=== PATIENT | female | born 2000 | race Hispanic/Latino ===

== ENCOUNTER 2023-10-21 19:33 | Emergency (ER) | payer MEDICAID, OTHER ==
[~2023-10-21] VITALS: Ht 157.5 cm; Wt 61.2 kg
[2023-10-21 19:34] VITALS: BP 116/72; PULSE 81; RESP 16
[2023-10-21] MEDS: KETOROLAC 30MG VIAL (30MG/ML) IM ONE (21:35)
[2023-10-21] MEDS ORDERED: KETO10TA2 PO (21:36)
== END 2023-10-21 22:30 | disposition home or self-care (01) ==
LOC: EDH 19:33
DX: S92.355A Nondisplaced fracture of fifth metatarsal bone, left foot, initial encounter for closed fracture (principal); Z88.0 Allergy status to penicillin; X50.1XXA Overexertion from prolonged static or awkward postures, initial encounter; Y93.89 Activity, other specified; Y92.89 Other specified places as the place of occurrence of the external cause; Y99.8 Other external cause status
CPT/HCPCS: 99284; 29515; 73630; 81025; 96372; J1885